=== PATIENT | female | born 2000 | race Caucasian/White ===

== ENCOUNTER 2023-02-25 06:54 | Inpatient (IN) | payer OTHER ==
[2023-02-25] VITALS (17 sets, daily range): BP systolic 124–143; BP diastolic 63–90
[~2023-02-25] VITALS: Ht 152.4 cm; Wt 108.0 kg
[~2023-02-25 06:54] MED LIST: IBUP600 PO
[2023-02-25 08:22] LABS: BASOPHILS ABSOLUTE AUTO 0.02 K/mm3 (0.00-0.23); BASOPHILS PERCENT AUTO 0 % (0-2); EOSINOPHILS ABSOLUTE AUTO 0.08 K/mm3 (0.00-0.68); EOSINOPHILS PERCENT AUTO 1 % (0-6); Hematocrit 34.6 % (33.0-51.0); Hemoglobin 11.5 g/dL (11.5-16.0); IMMATURE GRAN ABSOLUTE AUTO 0.05 K/mm3 (0.00-0.10); IMMATURE GRAN PERCENT AUTO 1 % (0-1); LYMPHOCYTES ABSOLUTE AUTO 1.88 K/mm3 (0.84-5.20); LYMPHOCYTES PERCENT AUTO 17 % (21-46); MONOCYTES ABSOLUTE AUTO 0.63 K/mm3 (0.16-1.47); MONOCYTES PERCENT AUTO 6 % (4-13); Mean Corpuscular HGB 27.1 pg (26.0-34.0); Mean Corpuscular HGB Conc 33.2 g/dL (31.5-36.5); Mean Corpuscular Volume 81 fL (80-100); Mean Platelet Volume 10.1 fL (9.1-12.4); NEUTROPHILS ABSOLUTE AUTO 8.16 K/mm3 (1.96-9.15); NEUTROPHILS PERCENT AUTO 75 % (41-73); Platelet Count 301 K/mm3 (150-400); RDW Coefficient Variation 14.2 % (11.7-14.2); RDW Standard Deviation 41.5 fL (35.1-46.3); Red Blood Cell Count 4.25 M/mm3 (3.80-5.20); White Blood Cell Count 10.82 K/mm3 (4.00-11.30)
[2023-02-26] VITALS (15 sets, daily range): BP systolic 107–129; BP diastolic 55–77
[2023-02-27 04:08] VITALS: BP 114/55
[2023-02-27 05:27] LABS: BASOPHILS ABSOLUTE AUTO 0.04 K/mm3 (0.00-0.23); BASOPHILS PERCENT AUTO 0 % (0-2); EOSINOPHILS ABSOLUTE AUTO 0.03 K/mm3 (0.00-0.68); EOSINOPHILS PERCENT AUTO 0 % (0-6); Hematocrit 31.3 % (33.0-51.0); Hemoglobin 10.4 g/dL (11.5-16.0); IMMATURE GRAN ABSOLUTE AUTO 0.06 K/mm3 (0.00-0.10); IMMATURE GRAN PERCENT AUTO 0 % (0-1); LYMPHOCYTES ABSOLUTE AUTO 2.31 K/mm3 (0.84-5.20); LYMPHOCYTES PERCENT AUTO 14 % (21-46); MONOCYTES ABSOLUTE AUTO 1.06 K/mm3 (0.16-1.47); MONOCYTES PERCENT AUTO 7 % (4-13); Mean Corpuscular HGB 27.1 pg (26.0-34.0); Mean Corpuscular HGB Conc 33.2 g/dL (31.5-36.5); Mean Corpuscular Volume 82 fL (80-100); Mean Platelet Volume 10.2 fL (9.1-12.4); NEUTROPHILS ABSOLUTE AUTO 12.63 K/mm3 (1.96-9.15); NEUTROPHILS PERCENT AUTO 78 % (41-73); Platelet Count 299 K/mm3 (150-400); RDW Coefficient Variation 14.4 % (11.7-14.2); RDW Standard Deviation 42.1 fL (35.1-46.3); Red Blood Cell Count 3.84 M/mm3 (3.80-5.20); White Blood Cell Count 16.13 K/mm3 (4.00-11.30)
[2023-02-27 08:05] VITALS: BP 119/56
[2023-02-27 11:17] VITALS: BP 118/58
[2023-02-27 15:03] VITALS: BP 126/60
[2023-02-27] MEDS ORDERED: PRENATAL TABLE1 EAC2 PO (16:10)
[2023-02-27 16:22] VITALS: BP 115/59
--- NOTE | 2023-02-27 16:29 | NUR ---
DISCHARGE INSTRUCTIONS SIGNED. QUESTIONS ANSWERED. BANDS MATCHED. PT TO BE DISCHARGED HOME WITH AND .
== END 2023-02-27 16:50 | disposition home or self-care (01) | DRG 807 ==
LOC: OBS 06:54 → BC 06:58 → OBS 07:07 → BC 07:10
PROVIDERS: ADMIT Obstetrics & Gynecology
PROC: 10E0XZZ Delivery of Products of Conception, External Approach (ICD-10-PCS; principal; 2023-02-26)
PROC: 10907ZC Drainage of Amniotic Fluid, Therapeutic from Products of Conception, Via Natural or Artificial Opening (ICD-10-PCS; 2023-02-26)
DX: O76 Abnormality in fetal heart rate and rhythm complicating labor and delivery (principal); Z37.0 Single live birth; Z3A.39 39 weeks gestation of pregnancy; Z91.040 Latex allergy status
CPT/HCPCS: 36415; 85025; 86850; 86900; 86901; A9270; J1885; J2590; J7120

== ENCOUNTER 2024-08-15 06:59 | Inpatient (IN) | payer OTHER ==
[~2024-08-15] VITALS: Ht 152.4 cm; Wt 111.8 kg
[2024-08-15] VITALS (13 sets, daily range): BP systolic 107–125; BP diastolic 55–77
[~2024-08-15 06:59] MED LIST changes: +PRENATAL TABLE1 EAC2 PO
[2024-08-15] MEDS ORDERED: OXYTOCIN/RINGER'S LACTATE 500 ML IV SCH (07:20)
[2024-08-15] MEDS ORDERED: Misoprostol 200 MCG Tab PR PRN ×2 (07:20→13:55)
[2024-08-15] MEDS ORDERED: FentaNYL 2mcg/ml-Bup 0.1% Epd 250 ML EPI PRN (07:20)
[2024-08-15] MEDS ORDERED: OXYTOCIN/RINGER'S LACTATE 500 ML IV PRN (07:20)
[2024-08-15] MEDS ORDERED: Oxytocin 10 Unit / ML Vial IM PRN (07:20)
[2024-08-15] MEDS ORDERED: Tranexamic Acid 100 ML IV SCH (07:20)
[2024-08-15] MEDS ORDERED: ePHEDrine Sulfate 50 MG/ML 1ML Injection XX PRN (07:20)
[2024-08-15] MEDS ORDERED: Methylergonovine Maleate 0.2MG / ML 1ML Amp IM PRN ×2 (07:20→13:55)
[2024-08-15] MEDS ORDERED: Lactated Ringer's 1,000 ML IV SCH ×4 (07:20→14:00)
[2024-08-15] MEDS ORDERED: Carboprost Tromethamine 250 MCG/ML 1ML Amp IM SCH (07:25)
[2024-08-15] MEDS ORDERED: Calcium Carbonate 500 MG Tab Chew PO PRN (07:25)
[2024-08-15] MEDS ORDERED: Acetaminophen 500 MG Tab PO PRN (07:25)
[2024-08-15] MEDS ORDERED: Ondansetron HCl 2 MG / ML 2ML Vial IV PRN (07:25)
[2024-08-15] MEDS ORDERED: Misoprostol 200 MCG Tab BC SCH (07:25)
[2024-08-15 07:48] LABS: BASOPHILS ABSOLUTE AUTO 0.02 K/mm3 (0.00-0.23); BASOPHILS PERCENT AUTO 0 % (0-2); EOSINOPHILS ABSOLUTE AUTO 0.11 K/mm3 (0.00-0.68); EOSINOPHILS PERCENT AUTO 1 % (0-6); Hematocrit 35.6 % (33.0-51.0); Hemoglobin 11.6 g/dL (11.5-16.0); IMMATURE GRAN ABSOLUTE AUTO 0.04 K/mm3 (0.00-0.10); IMMATURE GRAN PERCENT AUTO 0 % (0-1); LYMPHOCYTES ABSOLUTE AUTO 2.06 K/mm3 (0.84-5.20); LYMPHOCYTES PERCENT AUTO 17 % (21-46); MONOCYTES ABSOLUTE AUTO 0.65 K/mm3 (0.16-1.47); MONOCYTES PERCENT AUTO 6 % (4-13); Mean Corpuscular HGB 25.7 pg (26.0-34.0); Mean Corpuscular HGB Conc 32.6 g/dL (31.5-36.5); Mean Corpuscular Volume 79 fL (80-100); Mean Platelet Volume 9.9 fL (9.1-12.4); NEUTROPHILS ABSOLUTE AUTO 9.02 K/mm3 (1.96-9.15); NEUTROPHILS PERCENT AUTO 76 % (41-73); Platelet Count 294 K/mm3 (150-400); RDW Coefficient Variation 14.5 % (11.7-14.2); RDW Standard Deviation 41.2 fL (35.1-46.3); Red Blood Cell Count 4.51 M/mm3 (3.80-5.20)
[2024-08-15] MEDS ORDERED: Benzocaine Topical Anesthetic Spray 60GM TOP PRN (13:55)
[2024-08-15] MEDS ORDERED: Lanolin Cream TOP PRN (13:55)
[2024-08-15] MEDS ORDERED: Naproxen 500 MG Tab PO PRN (13:55)
[2024-08-15] MEDS ORDERED: OxyCODONE 5 mg/Acetamin 325 mg TABLET PO PRN (13:55)
[2024-08-15] MEDS ORDERED: FLU VACC TS2024-25(6MOS UP)/PF 45 MCG/0.5 ML SYRINGE IM SCH (14:00)
[2024-08-15] MEDS ORDERED: Ketorolac Tromethamine 30mg Vial IV PRN (14:00)
[2024-08-15] MEDS ORDERED: Docusate Sodium 100 MG Cap PO PRN (14:00)
[2024-08-15] MEDS ORDERED: Witch Hazel/Glycerin PADS TOP PRN (14:00)
[2024-08-15] MEDS ORDERED: Tranexamic Acid 100 ML IV PRN (14:15)
[2024-08-16 01:02] VITALS: BP 117/56
[2024-08-16 03:58] VITALS: BP 114/59
[2024-08-16 07:47] LABS: BASOPHILS ABSOLUTE AUTO 0.03 K/mm3 (0.00-0.23); BASOPHILS PERCENT AUTO 0 % (0-2); EOSINOPHILS ABSOLUTE AUTO 0.07 K/mm3 (0.00-0.68); EOSINOPHILS PERCENT AUTO 1 % (0-6); Hematocrit 31.9 % (33.0-51.0); Hemoglobin 10.5 g/dL (11.5-16.0); IMMATURE GRAN ABSOLUTE AUTO 0.05 K/mm3 (0.00-0.10); IMMATURE GRAN PERCENT AUTO 0 % (0-1); LYMPHOCYTES PERCENT AUTO 18 % (21-46); MONOCYTES ABSOLUTE AUTO 0.67 K/mm3 (0.16-1.47); MONOCYTES PERCENT AUTO 6 % (4-13); Mean Corpuscular HGB 26.3 pg (26.0-34.0); Mean Corpuscular HGB Conc 32.9 g/dL (31.5-36.5); Mean Corpuscular Volume 80 fL (80-100); Mean Platelet Volume 9.8 fL (9.1-12.4); NEUTROPHILS ABSOLUTE AUTO 9.02 K/mm3 (1.96-9.15); NEUTROPHILS PERCENT AUTO 76 % (41-73); Platelet Count 269 K/mm3 (150-400); RDW Coefficient Variation 14.8 % (11.7-14.2); RDW Standard Deviation 42.6 fL (35.1-46.3); White Blood Cell Count 11.94 K/mm3 (4.00-11.30)
[2024-08-16 08:54] VITALS: BP 120/59
[2024-08-16] MEDS ORDERED: Prenatal Vit/FE Fumarate/FA 1 Tab PO SCH ×2 (09:00)
[2024-08-16 12:45] VITALS: BP 119/59
--- NOTE | 2024-08-16 15:21 | NUR ---
DISCHARGE TEACHING COMPLETED, QUESTIONS ANSWERED, PT VERBALIZED UNDERSTANDING INSTRUCTIONS AND FOLLOW UP APPOINTMENTS
== END 2024-08-16 15:25 | disposition home or self-care (01) | DRG 807 ==
LOC: OBS 06:59 → BC 06:59 → OBS 07:29 → BC 07:30
PROVIDERS: ADMIT Obstetrics & Gynecology
PROC: 10E0XZZ Delivery of Products of Conception, External Approach (ICD-10-PCS; principal; 2024-08-15)
PROC: 10907ZC Drainage of Amniotic Fluid, Therapeutic from Products of Conception, Via Natural or Artificial Opening (ICD-10-PCS; 2024-08-15)
DX: O77.0 Labor and delivery complicated by meconium in amniotic fluid (principal); Z37.0 Single live birth; Z3A.39 39 weeks gestation of pregnancy; O69.81X0 Labor and delivery complicated by cord around neck, without compression, not applicable or unspecified
CPT/HCPCS: 36415; 85025; 86850; 86900; 86901; 86923; A9270; J1885; J2590; J7120